=== PATIENT | female | born 1980 | race African-American/Black ===

== ENCOUNTER 2017-08-29 05:56 | Inpatient (IN) ==
[2017-08-22 14:59] LABS: Eosinophils % 0.2 % (0.00-10.9); Hematocrit 30.2 VOL% (35.7-47.0); Hemoglobin 9.9 GM/DL (12.0-16.0); Immature Granulocytes % 0.2 %; Immature Granulocytes Absolute 0.01 #; Lymphocytes # 2.3 10*3/uL (1.4-4.0); Lymphocytes % 50.3 % (21.3-54.2); Mean Corpuscular HGB Conc 32.8 GM/DL (32-36); Mean Corpuscular Hemoglobin 29 PG (27-34); Mean Corpuscular Volume 89.6 FL (87-102); Mean Platelet Volume 10.6 FL (9.6-12.0); Monocytes # 0.4 10*3/uL (0.11-0.8); Monocytes % 9.6 % (1.7-12.7); Neutrophils # 1.8 10*3/uL (1.4-7.4); Neutrophils % 39.7 % (38.7-73.9); Platelet Count 190 T/CUMM (130-400); Red Blood Count 3.37 MC/CUMM (3.8-5.5); Red Cell Distribution Width 17.2 % (9.3-17.3); White Blood Count 4.6 T/CUMM (4-12)
[2017-08-22 15:23] LABS: Alanine Aminotransferase 23 U/L (13-56); Albumin 3.5 G/DL (3.4-5.0); Alkaline Phosphatase 51 U/L (45-117); Aspartate Amino Transferase 19 U/L (0-37); Bilirubin,Total < 0.39 MG/DL (0.2-1.0); Blood Urea Nitrogen 18 MG/DL (7-18); Calcium 9.3 MG/DL (8.5-10.1); Glucose 102 MG/DL (74-106); Osmolality,Calculated 267.4 MOS/KG (273-304); Potassium 4.4 MMOL/L (3.5-5.1); Sodium 133 MMOL/L (136-145)
[~2017-08-29 05:56] MED LIST: ceFAZolin 1,000 MG VIAL ONE
[2017-08-29] MEDS: LACTATED RINGERS 1,000 ML IV SCH ×3 (06:35→10:01)
[2017-08-29] MEDS ORDERED: LIDOCAINE 1% 50 ML VIAL ONE (06:50)
[2017-08-29] MEDS ORDERED: LIDOCAINE 1%/EPI INJ 20 ML VIAL ONE (06:50)
[2017-08-29] MEDS ORDERED: TISSUE ADHESIVE 1 EACH APPLICATOR TOP ONE ×2 (06:50→10:20)
[2017-08-29] MEDS ORDERED: BUPIVACAINE LIPOSOMAL 20 ML/266 MG VIAL ONE (08:20)
[2017-08-29] MEDS ORDERED: ACETAMINOPHEN 325 MG TABLET PO PRN (10:01)
[2017-08-29] MEDS ORDERED: ONDANSETRON 4 MG/2 ML VIAL IV PRN (10:01)
[2017-08-29] MEDS ORDERED: BISACODYL 5 MG TABLET PO PRN (10:01)
[2017-08-29] MEDS ORDERED: MIDAZOLAM 2 MG/2 ML VIAL ONE (10:58)
[2017-08-29] MEDS ORDERED: SEVOFLURANE 1 UNIT/15 MINUTE INH ONE (10:58)
[2017-08-29] MEDS ORDERED: PROPOFOL 200 MG/20 ML VIAL IV ONE (10:58)
[2017-08-29] MEDS ORDERED: fentaNYL 100 MCG/2 ML VIAL ONE (10:59)
[2017-08-29] MEDS ORDERED: ONDANSETRON 4 MG/2 ML VIAL ONE (10:59)
[2017-08-29] MEDS ORDERED: DEXAMETHASONE 10 MG/1 ML VIAL ONE (10:59)
[2017-08-29] MEDS ORDERED: KETOROLAC 30 MG/1 ML VIAL ONE (10:59)
[2017-08-29] MEDS ORDERED: PHENYLEPHRINE 10 MG/1 ML VIAL IV ONE (10:59)
[2017-08-29] MEDS ORDERED: GLYCOPYRROLATE 0.4 MG/2 ML VIAL ONE (11:00)
[2017-08-29] MEDS ORDERED: LACTATED RINGERS 2,000 ML IV ONE (11:00)
[2017-08-29] MEDS ORDERED: NEOSTIGMINE 10 MG/10 ML VIAL ONE (11:00)
[2017-08-29] MEDS ORDERED: ROCURONIUM 100 MG/10 ML VIAL IV ONE (11:00)
[2017-08-29 11:13] LABS: Apearance,Urine CLEAR (Clear); Bilirubin,Urine Negative (Negative); Blood, Urine Negative (Negative); Glucose,Urine (UA) Negative (Negative); Ketones,Urine Negative (Negative); Mucus,Urine Occasional /LPF (Occasional); Nitrite,Urine Negative (Negative); Protein,Urine Negative; RBC,Urine 4 /HPF (0-4); Squamous Epithelial Cell,Urine Occasional /HPF (0-10); Urine Color Yellow (Yellow); WBC,Urine 3 /HPF (0-6)
[2017-08-29 11:33] LABS: Hematocrit 32.1 VOL% (35.7-47.0); Hemoglobin 10.5 GM/DL (12.0-16.0)
[2017-08-29] MEDS: KETOROLAC 15 MG/1 ML VIAL IV SCH ×3 (11:47→22:23)
[2017-08-29] MEDS: ceFAZolin 2,000 MG in PREMIX 1 EACH IV SCH ×3 (11:47→22:23)
[2017-08-29] MEDS: DEXTROSE 5% NACL 0.45% 1,000 ML IV SCH ×2 (11:59→22:25)
[2017-08-29 12:02] LABS: Calcium 9.5 MG/DL (8.5-10.1); Osmolality,Calculated 277.5 MOS/KG (273-304); Potassium 4.9 MMOL/L (3.5-5.1)
[2017-08-29] MEDS: DIVALPROEX 500 MG TABLET PO SCH (21:09)
[2017-08-29] MEDS: DOCUSATE SODIUM 100 MG CAPSULE PO SCH (21:09)
[2017-08-30 05:15] LABS: Hematocrit 25.5 VOL% (35.7-47.0); Immature Granulocytes % 0.3 %; Immature Granulocytes Absolute 0.03 #; Lymphocytes # 2.7 10*3/uL (1.4-4.0); Lymphocytes % 23.9 % (21.3-54.2); Mean Corpuscular HGB Conc 33.3 GM/DL (32-36); Mean Corpuscular Hemoglobin 29 PG (27-34); Mean Corpuscular Volume 88.2 FL (87-102); Mean Platelet Volume 11.7 FL (9.6-12.0); Monocytes # 1.8 10*3/uL (0.11-0.8); Monocytes % 15.7 % (1.7-12.7); Neutrophils # 6.7 10*3/uL (1.4-7.4); Neutrophils % 60.1 % (38.7-73.9); Platelet Count 249 T/CUMM (130-400); Red Blood Count 2.89 MC/CUMM (3.8-5.5); Red Cell Distribution Width 16.7 % (9.3-17.3); White Blood Count 11.2 T/CUMM (4-12)
[2017-08-30 05:18] LABS: Hemoglobin 8.5 GM/DL (12.0-16.0)
[2017-08-30 05:30] LABS: Albumin 2.9 G/DL (3.4-5.0); Bilirubin,Total 0.4 MG/DL (0.2-1.0); Osmolality,Calculated 263.7 MOS/KG (273-304); Potassium 4.2 MMOL/L (3.5-5.1); Total Protein 5.9 G/DL (6.4-8.3)
[2017-08-30 05:34] LABS: Giant Platelets Few; Hypochromasia 1+; Lymphocytes 28 % (20-55); Ovalocytes Slight; Platelet Estimate Adequate; Segmented Neutrophils 53 % (50-85); Total Cells Counted 100
[2017-08-30 05:37] LABS: Free T4 (Free Thyroxine) 0.85 NG/DL (0.76-1.46); Thyroid Stimulating Hormone 0.899 uIU/ml (0.358-3.74)
[2017-08-30] MEDS: KETOROLAC 15 MG/1 ML VIAL IV SCH ×4 (05:54→23:23)
[2017-08-30] MEDS: LACTATED RINGERS 1,000 ML IV SCH (05:59)
[2017-08-30] MEDS: ceFAZolin 2,000 MG in PREMIX 1 EACH IV SCH ×3 (06:51→16:38)
[2017-08-30] MEDS: HYDROmorphone 2 MG/1 ML VIAL IV PRN ×2 (07:47→19:27)
[2017-08-30] MEDS: DEXTROSE 5% NACL 0.45% 1,000 ML IV SCH ×2 (08:43→19:29)
[2017-08-30] MEDS: DOCUSATE SODIUM 100 MG CAPSULE PO SCH ×2 (08:50→20:20)
[2017-08-30] MEDS: PANTOPRAZOLE 40 MG TABLET PO SCH (08:50)
[2017-08-30] MEDS: ENOXAPARIN 40 MG/0.4 ML SYRINGE SUBCUT SCH (08:51)
[2017-08-30] MEDS: CHOLECALCIFEROL 1,000 UNIT TABLET PO SCH (08:51)
[2017-08-30] MEDS: LEVOTHYROXINE 25 MCG TABLET PO SCH (08:51)
[2017-08-30] MEDS: DIVALPROEX 500 MG TABLET PO SCH ×2 (08:51→20:21)
[2017-08-30] MEDS: MULTIVITAMIN (CENTRUM) TABLET PO SCH (08:51)
[2017-08-31] MEDS: KETOROLAC 15 MG/1 ML VIAL IV SCH ×2 (04:55→11:31)
[2017-08-31 05:00] LABS: Basophils % 0.1 % (0.0-0.8); Eosinophils % 0.4 % (0.00-10.9); Hematocrit 24.4 VOL% (35.7-47.0); Hemoglobin 7.9 GM/DL (12.0-16.0); Immature Granulocytes % 0.3 %; Immature Granulocytes Absolute 0.03 #; Lymphocytes # 4.3 10*3/uL (1.4-4.0); Lymphocytes % 47.2 % (21.3-54.2); Mean Corpuscular HGB Conc 32.4 GM/DL (32-36); Mean Corpuscular Hemoglobin 29 PG (27-34); Mean Corpuscular Volume 89.4 FL (87-102); Mean Platelet Volume 11.7 FL (9.6-12.0); Monocytes # 1.4 10*3/uL (0.11-0.8); Monocytes % 14.8 % (1.7-12.7); Neutrophils # 3.4 10*3/uL (1.4-7.4); Neutrophils % 37.2 % (38.7-73.9); Platelet Count 238 T/CUMM (130-400); Red Blood Count 2.73 MC/CUMM (3.8-5.5); Red Cell Distribution Width 17.1 % (9.3-17.3); White Blood Count 9.2 T/CUMM (4-12)
[2017-08-31 05:34] LABS: Lymphocytes 52 % (20-55); Segmented Neutrophils 41 % (50-85); Total Cells Counted 100
[2017-08-31 05:35] LABS: Atypical Lymphocytes Few; Giant Platelets Few; Hypochromasia 1+; Platelet Estimate Adequate
[2017-08-31 05:43] LABS: Calcium 8.3 MG/DL (8.5-10.1); Osmolality,Calculated 264.2 MOS/KG (273-304); Potassium 4.2 MMOL/L (3.5-5.1)
[2017-08-31] MEDS: LACTATED RINGERS 1,000 ML IV SCH (06:33)
[2017-08-31 07:00] VITALS: BP 108/68
[2017-08-31] MEDS: MULTIVITAMIN (CENTRUM) TABLET PO SCH (09:26)
[2017-08-31] MEDS: CHOLECALCIFEROL 1,000 UNIT TABLET PO SCH (09:26)
[2017-08-31] MEDS: DIVALPROEX 500 MG TABLET PO SCH (09:26)
[2017-08-31] MEDS: LEVOTHYROXINE 25 MCG TABLET PO SCH (09:26)
[2017-08-31] MEDS: PANTOPRAZOLE 40 MG TABLET PO SCH (09:29)
[2017-08-31] MEDS: DOCUSATE SODIUM 100 MG CAPSULE PO SCH (09:30)
[2017-08-31] MEDS: ENOXAPARIN 40 MG/0.4 ML SYRINGE SUBCUT SCH (09:31)
== END 2017-08-31 11:20 | disposition home or self-care (01) | DRG 415 ==
LOC: N.OR 05:56 → N.SDSINP 05:58 → N.3E 11:41
PROVIDERS: ADMIT Specialist; ATTEND Specialist
PROC: LAPCHOL (2017-08-29 07:06)